=== PATIENT | male | born 1990 | race Caucasian/White ===

== ENCOUNTER 2022-06-01 08:05 | Emergency (ER) | payer OTHER, SELFPAY ==
[2022-06-01 08:19] VITALS: BP 154/97; PULSE 142; RESP 16; TEMP 37.4; O2SAT 98
[2022-06-01 08:22] VITALS: BP 154/97; PULSE 142; RESP 16; TEMP 37.4; O2SAT 98
--- NOTE | 2022-06-01 08:26 | ED.SKABFB ---
HPI - Skin/Abscess/Foreign Bdy General Chief complaint: Skin/Abscess/Foreign Body Stated complaint: insect bite Source: patient, RN notes reviewed and old records reviewed Mode of arrival: ambulatory Limitations: no limitations History of Present Illness HPI narrative: 31-year-old male who presents to [facility] with complaints of insect bite to right posterior shoulder area which occurred on Monday while hiking [place]. Patient has a 1.5 cm diameter red irritated small area with no fluctuance of tissue, some tenderness and warmth to site at posterior right shoulder. Patient has no pustule formation at site. Patient has taken some Ibuprofen for his discomfort he states that tried to pop area thinking it might be a pimple but wouldn't pop. complaint: insect bite/sting Onset (ago): day(s) (2) Severity scale (1-10): 5 Treatments prior to arrival: NSAID Related Data Home Medications Medication Instructions Recorded Confirmed amlodipine 5 mg tablet 5 mg PO DAILY 06/01/22 06/01/22 levothyroxine 50 mcg tablet 50 mcg PO DAILY 06/01/22 06/01/22 metoprolol succinate 50 mg 50 mg PO DAILY 06/01/22 06/01/22 tablet,extended release 24 hr pantoprazole 40 mg tablet,delayed 40 mg PO DAILY 06/01/22 06/01/22 release valsartan 160 mg tablet 160 mg PO DAILY 06/01/22 06/01/22 Allergies Allergy/AdvReac Type Severity Reaction Status Date / Time sulfamethoxazole Allergy Other Verified 06/01/22 08:31 [From Sulfamethoxazole-Trimethoprim] trimethoprim Allergy Other Verified 06/01/22 08:31 [From Sulfamethoxazole-Trimethoprim] neosporin Allergy Unknown Rash Uncoded 06/01/22 08:30 Review of Systems Review of Systems: CONSTITUTIONAL: Low-grade fever, no chills, or sweats. EYES: Denies visual changes, redness, or discharge. ENT: Denies rhinorrhea, congestion, sore throat, or otalgia. CARDIOVASCULAR: Denies chest pain, palpitations, or edema. RESPIRATORY: Denies cough or dyspnea. GASTROINTESTINAL: Denies abdominal pain, nausea, vomiting, or diarrhea. GENITOURINARY: Denies dysuria or hematuria. SKIN: Denies rash or itching.1.5cm diameter red tender insect bite to right posterior shoulder warm and tenderness MUSCULOSKELETAL: Denies back pain, joint pain, or myalgia. NEUROLOGIC: Denies headache, numbness, or weakness. PSYCHIATRIC: Denies anxiety or depression. All systems reviewed & are unremarkable except as noted in HPI and below PMFSH Past Medical History Medical History (Updated 06/01/22 @ 08:49 by Evette Mancilla NP) Asthma Hypertension Hypothyroidism Surgical History Surgical History (Updated 06/01/22 @ 08:50 by Evette Mancilla NP) [place] teeth extracted Family History Family History (Updated 06/01/22 @ 08:50 by Evette Mancilla NP) Grandparent Diabetes mellitus Hypertension Father Diabetes mellitus Hypertension Social History Social History (Updated 06/01/22 @ 08:51 by Evette Mancilla NP) Smoking status: Never smoker Alcohol intake: current Alcohol use details: rare Substance use type: does not use Living arrangements: with family Gender identity (if verbalized by the patient): Male Comments At time of signature, agree with nursing past medical, surgical, social and family history. There is no relevant family history pertinent to the presenting complaint Exam Narrative: GENERAL: Well-appearing, well-nourished,obese, and in no acute distress. HEAD: Normocephalic, atraumatic. EYES: PERRLA and EOMI. ENT: Nares clear, no rhinorrhea or epistaxis. Mucous membranes moist. TMs normal with good light reflex throat pink no lesions or tonsillar swelling no lymphadenopathy NECK: Supple. CHEST: Clear to auscultation. No respiratory distress. SaO2 98% on room air HEART: Regular rate and rhythm. No murmur heard. Normal peripheral pulses. ABDOMEN: Soft, nontender, nondistended, normal active bowel sounds. EXTREMITIES: Normal range of motion. No edema. SKIN: W
== END 2022-06-01 08:45 | disposition home or self-care (01) ==
PROVIDERS: Emergency Provider Registered Nurse; PCP Family Medicine
DX: L02.413 Cutaneous abscess of right upper limb (principal); S40.261A Insect bite (nonvenomous) of right shoulder, initial encounter; W57.XXXA Bitten or stung by nonvenomous insect and other nonvenomous arthropods, initial encounter; J45.909 Unspecified asthma, uncomplicated; I10 Essential (primary) hypertension; E03.9 Hypothyroidism, unspecified
CPT/HCPCS: 99213; G0463

== ENCOUNTER 2024-11-06 09:47 | Outpatient (CLI) | payer OTHER, SELFPAY ==
--- NOTE | ~2024-11-06 | MR_ITS ---
EXAMINATION: MRA abdomen wo/w con DATE: 11/06/2024 10:44 INDICATION: Essential hypertension TECHNIQUE: Magnetic resonance angiography (MRA) of the abdomen was performed without and with 20 mL M ultihance intravenous contrast. Sequences included axial and coronal 2-D FIESTA, 3-D phase contrast a t the level renal arteries and pre contrast and two sequential coronal postcontrast FSPGR from which rotating maximum intensity projection reconstructions were performed. COMPARISON: None. FINDINGS: Abdominal aorta is normal in caliber with no dissection or evident atherosclerotic plaque. There is n o stenosis at the celiac axis, superior and inferior mesenteric arteries, bilateral renal and bilater al common, external or internal iliac arteries. Heart size is normal. No pericardial or pleural effus ion. Liver, spleen, pancreas, bilateral adrenal glands and kidneys are normal. Visualized portions of bowels are unremarkable. No pathologically enlarged abdominal or upper pelvic lymphadenopathy. Visce ra bones are unremarkable with normal marrow signal throughout. IMPRESSION: 1. Normal abdominal MR angiogram with normal caliber and no stenosis of the abdominal aorta and its m ajor branches including the bilateral renal arteries Reviewed, dictated and finalized at location B. [facility] COORDINATOR IMPRESSION: 1. Normal abdominal MR angiogram with normal caliber and no stenosis of the abd ominal aorta and its major branches including the bilateral renal arteries
== END 2024-11-06 09:48 | disposition home or self-care (01) ==
LOC: MICIMG 09:47
PROVIDERS: PCP Family Medicine; Visit Provider Family Medicine
DX: I10 Essential (primary) hypertension (principal)
CPT/HCPCS: 74185; A9577; C8902